=== PATIENT | female | born 1965 | race Caucasian/White ===

== ENCOUNTER 2017-08-19 07:57 | Day surgery (SDC) | payer OTHER ==
--- NOTE | 2017-08-15 15:24 | EKG ---
Test Date: 2017-08-15 Test Time: 11:56:36 Multi Slide Machine Tender: ISABEL MEASUREMENT RESULTS: Intervals: Rate: 57 DE: 150 QRSD: 92 QT: 432 QTc: 420 [place]: P: 13 DE: 150 QRS: -4 T: 29 INTERPRETIVE STATEMENTS: Sinus bradycardia Minimal voltage criteria for LVH, may be normal variant Borderline ECG Compared to ECG 03/31/2011 10:38:23 Sinus rhythm no longer present Electronically Signed On 08-15-17 15:23:27 CDT by Eran Angel
[2017-08-19] MEDS ORDERED: Ringers Lactate 1,000 ML IV ONE (08:11)
[2017-08-19] MEDS ORDERED: FENTANYL CITR 100 MCG/2 ML ONE (08:11)
[2017-08-19] MEDS ORDERED: PROPOFOL 200 MG/20 ML VIAL IV ONE (08:11)
[2017-08-19] MEDS ORDERED: LIDOCAINE 2% MPF 5 ML VIAL ONE (08:11)
[2017-08-19] MEDS ORDERED: MIDAZOLAM HCL 2 MG/2 ML INJ ONE (08:11)
[2017-08-19 08:21] LABS: Specific Gravity 1.025 (1.005-1.030)
[2017-08-19] MEDS: LIDOCAINE 1% W/EPI 1:100,000 MDV 50 ML VIAL ONE ×2 (09:12→09:33)
[2017-08-19] MEDS ORDERED: Phenylephrine HCl 10 MG/ML 1 ML VIAL ONE (09:17)
[2017-08-19] MEDS ORDERED: GLYCOPYRROLATE 0.2 MG/ML SYR ONE (09:26)
--- NOTE | 2017-08-19 09:48 | P.BOP ---
Preoperative diagnosis: scalp masses Postoperative diagnosis: same Primary procedure: excision benign scalp lesion x 3 Transfer Pumper: NONE,NONE Estimated blood loss: <5ml Specimen: vertex scalp mass, left scalp mass (smaller and larger) Anesthesia: General Complications: None Implants: none Fluids & blood products: crystalloid 850ml Transferred to: Recovery Room Condition: Good
--- NOTE | 2017-08-19 22:04 | OP ---
Date of Procedure: 08/19/2017 Surgeon: Babs Hancock MD Preoperative Diagnosis: Scalp mass, multiple. Postoperative Diagnoses: Scalp mass, multiple; suspect dermoid or epidermal inclusion cyst like masses, pathology pending. Indication For Procedure: Ms. Haywood presented to the clinic with longstanding slowly enlarging multiple masses of the scalp, most notably on the left posterior scalp, a mass of approximately 3 cm and an adjacent mass of 2 cm. There was a small mass that was at the part of her hair that was bothersome as well. These areas were injected with 1% lidocaine with epinephrine. A total of 7.5 mL were used. Description Of Procedure: The superficial areas around the masses were trimmed conservatively of hair and the scalp was prepped in a sterile fashion with Betadine. The vertex mass was approached first. The mass was approximately 1 to 1.5 cm. An ellipsoid incision through the skin was made and the subcutaneous mass was carefully excised. It was noted to have a smooth capsule and dissected easily from surrounding tissues. After removal of the mass, the incision was closed in a layered fashion using 4-0 Vicryl and 5-0 plain gut sutures. Direct pressure was applied to aid in hemostasis and there was minimal bleeding. Attention was then turned to the left scalp. The smaller, lower, more posterior mass, which was approximately 2 cm was addressed first. A fusiform skin incision over the most superficial portion was incised using a scalpel and the capsule of the underlying cyst was carefully dissected. During dissection, the cyst was ruptured and cyst contents were partially removed. This aided in further dissection of the cyst wall, which was completely removed. After removal, the incision was closed in a layered fashion using 4-0 Vicryl deep sutures and 5-0 plain gut for the skin. Attention was then turned to the large left mass, which measured approximately 3 to 3.5 cm. An ellipsoid skin incision was made over the superficial most prominent portion of the mass and the cyst wall was divided. Sharp and blunt dissection were carried out along the cyst wall. It was removed in entirety. After removal of the large left lateral cyst, the surgical cavity was inspected. There was a small approximately 5 to 8 mm additional deep cyst immediately adjacent on the posterior skin flap. This was carefully dissected with needlepoint Bovie electrocautery and was removed and sent along with the large specimen. The surgical cavity was then examined. There was a small area of bleeding, which was treated with cauterization until hemostasis was achieved. The incision was then closed in a layered fashion using 4-0 Vicryl and 5-0 plain gut. No dressing was applied. The wounds were noted to be hemostatic and the patient was returned to care of anesthesia for awakening and extubation in the operating room, which proceeded without difficulty. Disposition: The patient will be discharged home in the care of her daughter and follow up with Dr. Hancock in 1 to 2 weeks for wound evaluation. HUGH Voice ID: [id number] Report ID: [id number] MTDD
== END 2017-08-19 11:27 | disposition home or self-care (01) ==
LOC: OR 07:57
PROVIDERS: ATTEND Otolaryngology
PROC: 0HB0XZZ Excision of Scalp Skin, External Approach (ICD-10-PCS; 2017-08-19)
PROC: 0JQ00ZZ Repair Scalp Subcutaneous Tissue and Fascia, Open Approach (ICD-10-PCS; principal; 2017-08-19 09:30)
DX: L72.11 Pilar cyst (principal); I10 Essential (primary) hypertension
CPT/HCPCS: 81025; 88304; 88305; 93005; J2250; J2370; J3010

== ENCOUNTER → 2019-01-15 | Day surgery (SDC) | payer OTHER ==
--- NOTE | 2019-01-15 18:39 | RAD REPORT ---
EXAM DESCRIPTION: US GUIDED FNA NON-BREAST CLINICAL HISTORY: Bilateral thyroid nodules COMPARISON: None. TECHNIQUE: Ultrasound guided bilateral thyroid FNA FINDINGS: Informed consent was obtained and time out was performed. The patients neck was prepped and draped in the usual sterile fashion. 1% lidocaine utilized for local anesthetic purposes. Right thyroid lobe nodule was localized measuring 13 x 9 mm. Utilizing aseptic technique, five 25 gauge FNA needle passes was made through the nodule under ultrasound guidance. All collected material was sent to the cytology department. Following this, the partially cystic appearing nodule measuring 17 x 9 mm in the left thyroid was localized. Utilizing ultrasound guidance and aseptic technique, the nodule underwent FNA procedure utilizing five 25 gauge needle specimens. All collected material was sent to the cytology department. The patient tolerated the procedure well. IMPRESSION: Successful ultrasound guided bilateral thyroid FNA procedure and detailed.
== END | disposition home or self-care (01) ==
LOC: FNA 09:25
PROVIDERS: ATTEND Otolaryngology
PROC: 0G9G3ZX Drainage of Left Thyroid Gland Lobe, Percutaneous Approach, Diagnostic (ICD-10-PCS; principal; 2019-01-15)
PROC: BG44ZZZ Ultrasonography of Thyroid Gland (ICD-10-PCS; 2019-01-15)
PROC: 0G9H3ZX Drainage of Right Thyroid Gland Lobe, Percutaneous Approach, Diagnostic (ICD-10-PCS; 2019-01-15)
PROC: BG44ZZZ Ultrasonography of Thyroid Gland (ICD-10-PCS; 2019-01-15)
DX: E04.2 Nontoxic multinodular goiter (principal); D23.4 Other benign neoplasm of skin of scalp and neck
CPT/HCPCS: 88162